=== PATIENT | female | born 1960 ===

== ENCOUNTER 2018-04-13 12:47 | Emergency (ER) | payer OTHER ==
[~2018-04-13] VITALS: Ht 162.6 cm; Wt 57.6 kg
[2018-04-13] MEDS ORDERED: PRISTIQ25 MG (16:22)
[2018-04-13] MEDS ORDERED: WELLBUTRIN SR100 MG (16:22)
== END 2018-04-13 18:35 | disposition home or self-care (01) ==
LOC: ER 12:47
DX: I49.8 Other specified cardiac arrhythmias (principal); E03.9 Hypothyroidism, unspecified; F32.9 Major depressive disorder, single episode, unspecified